=== PATIENT | male | born 1955 | race African-American/Black ===

== ENCOUNTER 2023-01-14 15:43 | Inpatient (IN) ==
--- NOTE | 2023-01-14 16:16 | Emergency Department Note ---
Impression & Plan DKA (diabetic ketoacidosis), Chest pain, Hyperkalemia, Acute dehydration ED Provider Note NAME: LANE [id number] CHRISTINA AGE: 67 SEX: M : 1955 ARRIVES VIA: Ambulance INFORMANT: Patient, ED PROVIDER(S): Josh Back MD CHIEF COMPLAINT: Elevated blood sugar MEDICAL DECISION MAKING: Patient presents due to concern for elevated blood sugar. IV was established and blood work is obtained. Patient was noted to have hyper kalemia and significant elevation in blood sugar in addition to low bicarb and anion gap. Concern for possible DKA. Patient was ordered IV fluid boluses as well as insulin bolus and drip albuterol treatment. Do not believe the patient requires potassium binders at this time as the patient's creatinine is not significantly elevated. Blood work shows a normal white count hemoglobin and platelet count. The patient's kidney function with a creat of 1.7. Sodium 130 which is likely pseudohyponatremia as the patient's blood sugar 643. Potassium was 6.1 with a bicarb of 12 and anion gap of 23. Patient's urinalysis does not show evidence of obvious infection but does show ketones. Patient's chest x-ray does not show any obvious pneumothorax. Critical Care: I have personally spent 55 minutes of critical care time in direct management of this patient. This includes bedside care, interpretation of diagnostic studies, and testing, discussion with consultants, patient, and family members, and other require inpatient management activities. This 55 minutes is in excess of all separately billable procedures. Discussion w/ other healthcare providers: Dr. Kaye with inpatient medicine service [facility] emergency medicine pharmacy Prior /Outside records reviewed: I reviewed the patient's medication list from his boot camp. Differential diagnosis: Infection, dehydration, metabolic abnormality, hypo/hyperglycemia, electrolyte imbalance, anemia, UTI, pneumonia, thyroid dysfunction among others were considered. Diagnostics, as interpreted by me: ECG: Normal sinus rhythm, rate of 86, normal intervals normal axis no ST elevations Cardiac monitoring: An order was placed for continuous cardiac monitoring. The monitor shows a rate of 85 with sinus rhythm. Patient was placed on pulse oximetry Medical decision rules: None Imaging studies: I informally interpreted the patient's chest x-ray which does not show obvious pneumothorax with formal report to follow. HPI: Patient presents from a boot camp which she has been in for some time but was noted to have elevated blood sugar. The patient states he has no prior history of diabetes in the past. The patient has noticed some increased thirst and urination. Patient denies any falls or trauma no infectious symptoms. Patient states that he has noted that he is a bit more winded when he is out in the yard. Patient states that he has had some associated chest discomfort approximate 3 weeks worse with exertion but better with rest. Patient denies any alcohol or tobacco use. PAST MEDICAL HISTORY: See Below PAST SURGICAL HISTORY: See Below SOCIAL HISTORY: See Below HOME MEDICATIONS: See Below ALLERGIES: See Below VITALS: See Below PHYSICAL EXAMINATION: GENERAL: NAD, non-toxic. Wearing glasses. EYE EXAM: Normal conjunctiva. PERRL, no anisocoria and EOM's grossly intact w/o pain. OROPHARYNX: Dry mucus membranes, edentulous. NECK: Supple, no nuchal rigidity, no adenopathy, non-tender. No signs of meningismus. FROM of the neck with good chin to chest and neck extension. No stridor. LUNGS: Clear to auscultation. Normal chest wall mechanics. HEART: NSR, no MRG. ABDOMEN: Abdomen soft, non-tender, no masses, no rebound or guarding. BACK: No CVA TTP. SKIN: No rashes and no bruising. UPPER EXTREMITIES: Upper extremities are grossly normal. LOWER EXTREMITIES: Grossly normal, no edema. NEURO EXAM: A&O x3, cranial nerves II-XII grossly intact, normal speech, moves all 4 extremities. 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 Beliefs That Will Affect Care: None Current Living Situation: Other Feels Safe at Home: Yes Assistive Devices: None Allergies Allergies Allergy/AdvReac Type Severity Reaction Status Date / Time Penicillins Allergy Unknown Verified 01/14/23 17:57 Home Meds Home Medications Medication Instructions Recorded Confirmed calcium carbonate 600 mg-vitamin 1 tab PO BID 01/14/23 01/14/23 D3 10 mcg (400 unit) tablet (Calcium 600 + D(3)) ketoconazole 2 % topical cream 1 applic topical HS 01/14/23 01/14/23 Previous Rx's Medication Instructions Recorded aspirin 81 mg tablet,delayed 81 mg PO QAM 30 days #30 tabs 01/16/23 release atorvastatin 40 mg tablet 80 mg PO QAM 30 days #60 tabs 01/16/23 insulin aspart U-100 100 unit/mL 1 unit (0.01 mL) SC ACHS #10 mL 01/16/23 subcutaneous solution (Novolog U-100 Insulin aspart) insulin glargine 100 unit/mL 30 unit (0.3 mL) SC HS #10 mL 01/16/23 subcutaneous solution (Lantus U-100 Insulin) metoprolol tartrate 25 mg tablet 12.5 mg PO BID 30 days #30 tabs 01/16/23 Results & Data (ED) Vital Signs Vital Signs - 24 hr 01/14/23 15:58 01/14/23 15:27 01/14/23 15:51 Temperature 36.8 C Temperature Source Oral Pulse Rate 84 89 Pulse Rate [Apical] Pulse Rate from SpO2 Sensor Respiratory Rate 14 Blood Pressure 163/108 H Blood Pressure [Left Arm] Blood Pressure Mean 126 Blood Pressure Mean [Left Arm] Pulse Oximetry 96 Oxygen Delivery Method Room Air Sepsis Recent Fever Within 48 Hours No Sepsis New/Unexplained Change in Mental Status No Sepsis Action Taken by Nursing No Action Required 01/14/23 15:59 01/14/23 16:00 01/14/23 16:10 Temperature Temperature Source Pulse Rate 85 85 86 Pulse Rate [Apical] Pulse Rate from SpO2 Sensor 85 86 86 Respiratory Rate 17 18 17 Blood Pressure Blood Pressure [Left Arm] Blood Pressure Mean Blood Pressure Mean [Left Arm] Pulse Oximetry 96 95 96 Oxygen Delivery Method Sepsis Recent Fever Within 48 Hours Sepsis New/Unexplained Change in Mental Status Sepsis Action Taken by Nursing 01/14/23 16:20 01/14/23 16:30 01/14/23 16:40 Temperature Temperature Source Pulse Rate 89 88 88 Pulse Rate [Apical] Pulse Rate from SpO2 Sensor 89 88 88 Respiratory Rate 15 17 17 Blood Pressure Blood Pressure [Left Arm] Blood Pressure Mean Blood Pressure Mean [Left Arm] Pulse Oximetry 96 97 96 Oxygen Delivery Method Sepsis Recent Fever Within 48 Hours Sepsis New/Unexplained Change in Mental Status Sepsis Action Taken by Nursing 01/14/23 16:50 01/14/23 17:00 01/14/23 17:10 Temperature Temperature Source Pulse Rate 89 88 84 Pulse Rate [Apical] Pulse Rate from SpO2 Sensor 89 89 84 Respiratory Rate 15 16 16 Blood Pressure Blood Pressure [Left Arm] Blood Pressure Mean Blood Pressure Mean [Left Arm] Pulse Oximetry 97 97 97 Oxygen Delivery Method Sepsis Recent Fever Within 48 Hours Sepsis New/Unexplained Change in Mental Status Sepsis Action Taken by Nursing 01/14/23 17:20 01/14/23 17:30 01/14/23 17:40 Temperature Temperature Source Pulse Rate 84 83 83 Pulse Rate [Apical] Pulse Rate from SpO2 Sensor 85 83 83 Respiratory Rate 14 16 17 Blood Pressure Blood Pressure [Left Arm] Blood Pressure Mean Blood Pressure Mean [Left Arm] Pulse Oximetry 97 97 98 Oxygen Delivery Method Sepsis Recent Fever Within 48 Hours Sepsis New/Unexplained Change in Mental Status Sepsis Action Taken by Nursing 01/14/23 17:50 01/14/23 18:05 01/14/23 18:00 Temperature Temperature Source Pulse Rate 84 86 Pulse Rate [Apical] 84 Pulse Rate from SpO2 Sensor 85 86 Respiratory Rate 15 20 13 Blood Pressure Blood Pressure [Left Arm] 130/87 Blood Pressure Mean Blood Pressure Mean [Left Arm] 101 Pulse Oximetry 99 100 99 Oxygen Delivery Method Nebulizer Sepsis Recent Fever Within 48 Hours Sepsis New/Unexplained Change in Mental Status Sepsis Action Taken by Nursing 01/14/23 18:05 01/14/23 18:05 Temperature Temperature Source Pulse Rate 86 Pulse Rate [Apical] Pulse Rate from SpO2 Sensor 85 Respiratory Rate 14 Blood Pressure 130/87 Blood Pressure [Left Arm] Blood Pressure Mean 95 Blood Pressure Mean [Left Arm] Pulse Oximetry 99 Oxygen Delivery Method Sepsis Recent Fever Within 48 Hours Sepsis New/Unexplained Change in Mental Status Sepsis Action Taken by Correction Medications Current Medication List: was personally reviewed by me Laboratory Data Attestation: I reviewed the patient's lab results. 01/14/23 16:08 01/14/23 17:38 Lab Results 01/14/23 01/14/23 01/14/23 Range/Units 05:23 15:49 16:08 WBC 6.87 (4.8-10.8) K/ul RBC 5.65 (4.70-6.10) M/uL Hgb 15.7 (14.0-18.0) g/dl POC Hgb (14.0-18.0) g/dl Hct 47.4 (42.0-52.0) % POC Hct (42-52) % MCV 83.9 (80.0-100.0) fL MCH 27.8 (25.0-34.0) pg MCHC 33.1 (32.0-36.0) g/dL RDW Std Deviation 43.2 (36.4-46.3) fL RDW Coeff of Rocio 14.1 (11.5-14.5) % Plt Count 224 (130-400) K/uL MPV 10.1 (9.4-12.4) fL Immature Gran % (Auto) 0.1 % Neut % (Auto) 71.8 % Lymph % (Auto) 21.3 % Jennings % (Auto) 6.1 % Eos % (Auto) 0.1 % Baso % (Auto) 0.6 % Neut # (Auto) 4.93 (1.40-6.50) K/uL Lymph # (Auto) 1.46 (1.20-3.40) K/uL Jennings # (Auto) 0.42 (0.11-0.59) K/uL Eos # (Auto) 0.01 (0.00-0.50) K/uL Baso # (Auto) 0.04 (0.00-0.20) K/uL Immature Gran # (Auto) 0.01 (0.01-0.20) K/uL VBG pH (7.36-7.41) POC Sodium (135-144) mmol/L Sodium (136-145) mmol/L POC Potassium (3.3-5.0) mmol/L Potassium (3.5-5.1) mmol/L POC Chloride (101-112) mmol/L Chloride (98-107) mmol/L Carbon Dioxide (21-32) mmol/L POC Total CO2 (24-31) mmol/L Anion Gap (3-11) POC Anion Gap (16-25) mmol/L POC BUN (7-18) mg/dl BUN (6-23) mg/dl Creatinine (0.6-1.4) mg/dl POC Creatinine (0.6-1.3) mg/dl Est Cr Clr Drug Dosing Est GFR ( Amer) ml/min Est GFR (Non-Af Amer) ml/min BUN/Creatinine Ratio (10-20) Glucose (70-99(Fasting)) mg/dl POC Glucose 581 H* (70-99) mg/dl POC Glucose (other) (70-99) mg/dl Estimat Average Glucose mg/dl Hemoglobin A1c (4.5-5.6) % Calcium (8.6-10.3) mg/dl POC Ioniz Calcium Josi (1.12-1.32) mmol/l Phosphorus (2.5-4.9) mg/dl Magnesium (1.7-2.4) mg/dl Total Bilirubin (0.2-1.0) mg/dl AST (13-39) U/L ALT (7-52) U/L Alkaline Phosphatase (34-104) U/L Total Protein (6.0-8.3) gm/dl Albumin (3.4-5.0) gm/dl Globulin (2.5-4.0) gm/dl Albumin/Globulin Ratio (0.9-2) TSH (0.300-4.500) uIu/ml Urine Color Urine Appearance (Clear) Urine pH (4.5-7.5) Ur Specific [place] (1.000-1.030) Urine Protein (Negative) Urine Glucose (UA) (Negative) Urine Ketones (Negative) Urine Blood (Negative) Urine Nitrite (Negative) Urine Bilirubin (Negative) Urine Urobilinogen (Negative) Ur Leukocyte Esterase (Negative) Urine WBC (Auto) (0-5) /hpf Urine RBC (Auto) (0-4) /hpf U Hyaline Cast (Auto) (0-5) /lpf U Epithel Cells (Auto) (0-5) /lpf Urine Bacteria (Auto) (Negative) Anaplasma Smear Cancelled Lyme Disease IgG Ab (Negative) Lyme Disease IgM Ab (Negative) 01/14/23 01/14/23 01/14/23 Range/Units 16:08 16:08 16:08 WBC (4.8-10.8) K/ul RBC (4.70-6.10) M/uL Hgb (14.0-18.0) g/dl POC Hgb (14.0-18.0) g/dl Hct (42.0-52.0) % POC Hct (42-52) % MCV (80.0-100.0) fL MCH (25.0-34.0) pg MCHC (32.0-36.0) g/dL RDW Std Deviation (36.4-46.3) fL RDW Coeff of Rocio (11.5-14.5) % Plt Count (130-400) K/uL MPV (9.4-12.4) fL Immature Gran % (Auto) % Neut % (Auto) % Lymph % (Auto) % Jennings % (Auto) % Eos % (Auto) % Baso % (Auto) % Neut # (Auto) (1.40-6.50) K/uL Lymph # (Auto) (1.20-3.40) K/uL Jennings # (Auto) (0.11-0.59) K/uL Eos # (Auto) (0.00-0.50) K/uL Baso # (Auto) (0.00-0.20) K/uL Immature Gran # (Auto) (0.01-0.20) K/uL VBG pH (7.36-7.41) POC Sodium (135-144) mmol/L Sodium 130 L (136-145) mmol/L POC Potassium (3.3-5.0) mmol/L Potassium 6.1 H* (3.5-5.1) mmol/L POC Chloride (101-112) mmol/L Chloride 95 L (98-107) mmol/L Carbon Dioxide 12 L (21-32) mmol/L POC Total CO2 (24-31) mmol/L Anion Gap 23 H (3-11) POC Anion Gap (16-25) mmol/L POC BUN (7-18) mg/dl BUN 42 H (6-23) mg/dl Creatinine 1.72 H (0.6-1.4) mg/dl POC Creatinine (0.6-1.3) mg/dl Est Cr Clr Drug Dosing Not Reportable Est GFR ( Amer) 46.0 ml/min Est GFR (Non-Af Amer) 39.7 ml/min BUN/Creatinine Ratio 24.4 H (10-20) Glucose 643 H* (70-99(Fasting)) mg/dl POC Glucose (70-99) mg/dl POC Glucose (other) (70-99) mg/dl Estimat Average Glucose 278 mg/dl Hemoglobin A1c 11.3 H (4.5-5.6) % Calcium 11.4 H (8.6-10.3) mg/dl POC Ioniz Calcium Josi (1.12-1.32) mmol/l Phosphorus (2.5-4.9) mg/dl Magnesium (1.7-2.4) mg/dl Total Bilirubin 0.7 (0.2-1.0) mg/dl AST 19 (13-39) U/L ALT 11 (7-52) U/L Alkaline Phosphatase 154 H (34-104) U/L Total Protein 9.7 H (6.0-8.3) gm/dl Albumin 5.5 H (3.4-5.0) gm/dl Globulin 4.2 H (2.5-4.0) gm/dl Albumin/Globulin Ratio 1.3 (0.9-2) TSH 1.321 (0.300-4.500) uIu/ml Urine Color Urine Appearance (Clear) Urine pH (4.5-7.5) Ur Specific [place] (1.000-1.030) Urine Protein (Negative) Urine Glucose (UA) (Negative) Urine Ketones (Negative) Urine Blood (Negative) Urine Nitrite (Negative) Urine Bilirubin (Negative) Urine Urobilinogen (Negative) Ur Leukocyte Esterase (Negative) Urine WBC (Auto) (0-5) /hpf Urine RBC (Auto) (0-4) /hpf U Hyaline Cast (Auto) (0-5) /lpf U Epithel Cells (Auto) (0-5) /lpf Urine Bacteria (Auto) (Negative) Anaplasma Smear Lyme Disease IgG Ab Negative (Negative) Lyme Disease IgM Ab Negative (Negative) 01/14/23 01/14/23 01/14/23 Range/Units 16:14 17:10 17:38 WBC (4.8-10.8) K/ul RBC (4.70-6.10) M/uL Hgb (14.0-18.0) g/dl POC Hgb 17.3 (14.0-18.0) g/dl Hct (42.0-52.0) % POC Hct 51 (42-52) % MCV (80.0-100.0) fL MCH (25.0-34.0) pg MCHC (32.0-36.0) g/dL RDW Std Deviation (36.4-46.3) fL RDW Coeff of Rocio (11.5-14.5) % Plt Count (130-400) K/uL MPV (9.4-12.4) fL Immature Gran % (Auto) % Neut % (Auto) % Lymph % (Auto) % Jennings % (Auto) % Eos % (Auto) % Baso % (Auto) % Neut # (Auto) (1.40-6.50) K/uL Lymph # (Auto) (1.20-3.40) K/uL Jennings # (Auto) (0.11-0.59) K/uL Eos # (Auto) (0.00-0.50) K/uL Baso # (Auto) (0.00-0.20) K/uL Immature Gran # (Auto) (0.01-0.20) K/uL VBG pH (7.36-7.41) POC Sodium 132 L (135-144) mmol/L Sodium 132 L (136-145) mmol/L POC Potassium 6.2 H* (3.3-5.0) mmol/L Potassium 5.2 H (3.5-5.1) mmol/L POC Chloride 104 (101-112) mmol/L Chloride 98 (98-107) mmol/L Carbon Dioxide 13 L (21-32) mmol/L POC Total CO2 14 L (24-31) mmol/L Anion Gap 21 H (3-11) POC Anion Gap 21.0 (16-25) mmol/L POC BUN 43 H (7-18) mg/dl BUN 42 H (6-23) mg/dl Creatinine 1.71 H (0.6-1.4) mg/dl POC Creatinine 1.5 H (0.6-1.3) mg/dl Est Cr Clr Drug Dosing Not Reportable Est GFR ( Amer) 46.3 ml/min Est GFR (Non-Af Amer) 40.0 ml/min BUN/Creatinine Ratio 24.6 H (10-20) Glucose 565 H* (70-99(Fasting)) mg/dl POC Glucose (70-99) mg/dl POC Glucose (other) 664 H* (70-99) mg/dl Estimat Average Glucose mg/dl Hemoglobin A1c (4.5-5.6) % Calcium 10.0 (8.6-10.3) mg/dl POC Ioniz Calcium Josi 1.30 (1.12-1.32) mmol/l Phosphorus 4.4 (2.5-4.9) mg/dl Magnesium 2.6 H (1.7-2.4) mg/dl Total Bilirubin (0.2-1.0) mg/dl AST (13-39) U/L ALT (7-52) U/L Alkaline Phosphatase (34-104) U/L Total Protein (6.0-8.3) gm/dl Albumin (3.4-5.0) gm/dl Globulin (2.5-4.0) gm/dl Albumin/Globulin Ratio (0.9-2) TSH (0.300-4.500) uIu/ml Urine Color Yellow Urine Appearance Clear (Clear) Urine pH 5.0 (4.5-7.5) Ur Specific [place] 1.033 H (1.000-1.030) Urine Protein 1+ H (Negative) Urine Glucose (UA) 3+ H (Negative) Urine Ketones 3+ H (Negative) Urine Blood 1+ H (Negative) Urine Nitrite Negative (Negative) Urine Bilirubin Negative (Negative) Urine Urobilinogen Negative (Negative) Ur Leukocyte Esterase Negative (Negative) Urine WBC (Auto) 1-5 (0-5) /hpf Urine RBC (Auto) 0-4 (0-4) /hpf U Hyaline Cast (Auto) 1-5 (0-5) /lpf U Epithel Cells (Auto) 5-10 H (0-5) /lpf Urine Bacteria (Auto) Negative (Negative) Anaplasma Smear Lyme Disease IgG Ab (Negative) Lyme Disease IgM Ab (Negative) 01/14/23 01/14/23 Range/Units 17:38 18:03 WBC (4.8-10.8) K/ul RBC (4.70-6.10) M/uL Hgb (14.0-18.0) g/dl POC Hgb (14.0-18.0) g/dl Hct (42.0-52.0) % POC Hct (42-52) % MCV (80.0-100.0) fL MCH (25.0-34.0) pg MCHC (32.0-36.0) g/dL RDW Std Deviation (36.4-46.3) fL RDW Coeff of Rocio (11.5-14.5) % Plt Count (130-400) K/uL MPV (9.4-12.4) fL Immature Gran % (Auto) % Neut % (Auto) % Lymph % (Auto) % Jennings % (Auto) % Eos % (Auto) % Baso % (Auto) % Neut # (Auto) (1.40-6.50) K/uL Lymph # (Auto) (1.20-3.40) K/uL Jennings # (Auto) (0.11-0.59) K/uL Eos # (Auto) (0.00-0.50) K/uL Baso # (Auto) (0.00-0.20) K/uL Immature Gran # (Auto) (0.01-0.20) K/uL VBG pH 7.22 L (7.36-7.41) POC Sodium (135-144) mmol/L Sodium (136-145) mmol/L POC Potassium (3.3-5.0) mmol/L Potassium (3.5-5.1) mmol/L POC Chloride (101-112) mmol/L Chloride (98-107) mmol/L Carbon Dioxide (21-32) mmol/L POC Total CO2 (24-31) mmol/L Anion Gap (3-11) POC Anion Gap (16-25) mmol/L POC BUN (7-18) mg/dl BUN (6-23) mg/dl Creatinine (0.6-1.4) mg/dl POC Creatinine (0.6-1.3) mg/dl Est Cr Clr Drug Dosing Est GFR ( Amer) ml/min Est GFR (Non-Af Amer) ml/min BUN/Creatinine Ratio (10-20) Glucose (70-99(Fasting)) mg/dl POC Glucose 496 H* (70-99) mg/dl POC Glucose (other) (70-99) mg/dl Estimat Average Glucose mg/dl Hemoglobin A1c (4.5-5.6) % Calcium (8.6-10.3) mg/dl POC Ioniz Calcium Josi (1.12-1.32) mmol/l Phosphorus (2.5-4.9) mg/dl Magnesium (1.7-2.4) mg/dl Total Bilirubin (0.2-1.0) mg/dl AST (13-39) U/L ALT (7-52) U/L Alkaline Phosphatase (34-104) U/L Total Protein (6.0-8.3) gm/dl Albumin (3.4-5.0) gm/dl Globulin (2.5-4.0) gm/dl Albumin/Globulin Ratio (0.9-2) TSH (0.300-4.500) uIu/ml Urine Color Urine Appearance (Clear) Urine pH (4.5-7.5) Ur Specific [place] (1.000-1.030) Urine Protein (Negative) Urine Glucose (UA) (Negative) Urine Ketones (Negative) Urine Blood (Negative) Urine Nitrite (Negative) Urine Bilirubin (Negative) Urine Urobilinogen (Negative) Ur Leukocyte Esterase (Negative) Urine WBC (Auto) (0-5) /hpf Urine RBC (Auto) (0-4) /hpf U Hyaline Cast (Auto) (0-5) /lpf U Epithel Cells (Auto) (0-5) /lpf Urine Bacteria (Auto) (Negative) Anaplasma Smear Lyme Disease IgG Ab (Negative) Lyme Disease IgM Ab (Negative) Administered Medications Discontinued Medications Acetaminophen (Acetaminophen 325 Mg Tab) 650 mg PO Q4H PRN PRN Reason: Pain or Fever Stop: 02/13/23 21:35 Last Admin: 01/15/23 23:17 Dose: 650 mg Documented By: Admin: 01/15/23 09:31 Dose: 650 mg Documented By: PANCHITO Albuterol (Albuterol 0.083% Nebu Soln 3 Ml Vial) 10 mg NEB NOW STA; Protocol Stop: 01/14/23 17:23 Last Admin: 01/14/23 17:36 Dose: 10 mg Documented By: LOVE Aspirin (Aspirin 81 Mg Ectab) [facility] Stop: 02/13/23 23:29 Last Admin: 01/17/23 09:05 Dose: 81 mg Documented By: Admin: 01/16/23 08:30 Dose: 81 mg Documented By: Admin: 01/15/23 00:35 Dose: 81 mg Documented By: THOR Atorvastatin Calcium (Atorvastatin 40 Mg Tab) 80 mg PO QAM [facility] Stop: 02/14/23 11:29 Last Admin: 01/17/23 09:05 Dose: 80 mg Documented By: Admin: 01/16/23 08:30 Dose: 80 mg Documented By: Admin: 01/15/23 11:59 Dose: 80 mg Documented By: PANCHITO Fentanyl Citrate (Fentanyl Citrate Pf 100 Mcg/2 Ml Vial) Confirm Administered Dose 100 mcg .ROUTE .STK-MED ONE Stop: 01/16/23 13:45 Last Increment: 01/16/23 14:11 Dose: 12.5 mcg Documented By: EVITA Heparin Sodium (Porcine) (Heparin Sod 5,000 Unit/0.5 Ml Vial) 5,000 units SQ Q8 [facility] Stop: 02/13/23 21:59 Last Admin: 01/14/23 23:33 Dose: 5,000 units Documented By: THOR Heparin Sodium (Porcine) (Heparin (Porcine) 1000 Unit/Ml 10 Ml ([employer]frame [employer] Mechanic Use Only)) Confirm Administered Dose 10,000 units .ROUTE .STK-MED ONE Stop: 01/16/23 13:45 Last Admin: 01/16/23 14:11 Dose: 5,000 units Documented By: EVITA Heparin Sodium/Sodium Chloride (Heparin In Nss Infusion 1000 Unit/500 Ml (2 U/Ml) Bag) Confirm Administered Dose 3,000 units IV .STK-MED ONE Stop: 01/16/23 13:45 Last Admin: 01/16/23 15:29 Dose: Not Given Documented By: NICOLE Sodium Chloride (Nss) 1,000 mls @ 999 mls/hr IV .Q1H1M ONE Stop: 01/14/23 17:32 Last Infusion: 01/14/23 17:56 Dose: 0 mls/hr Documented By: Admin: 01/14/23 16:55 Dose: 999 mls/hr Documented By: LOVE Sodium Chloride (Nss) 1,000 mls @ 999 mls/hr IV .Q1H1M ONE Stop: 01/14/23 18:22 Last Infusion: 01/14/23 23:43 Dose: 0 mls/hr Documented By: Admin: 01/14/23 18:05 Dose: 999 mls/hr Documented By: ML Parenteral Electrolytes (Plasma-Lyte A Ph 7.4) 1,000 mls @ 150 mls/hr IV .Q6H40M [facility] Stop: 02/13/23 17:29 Last Admin: 01/14/23 18:09 Dose: Not Given Documented By: ML Insulin Human Regular 250 (units/ Sodium Chloride) 250 mls @ 0 mls/hr IV .Q0M [facility]; Protocol Stop: 02/13/23 17:29 Last Titration: 01/15/23 14:06 Dose: 0 units/hr, 0 mls/hr Documented By: PANCHITO Co-signed By: MARÍA Titration: 01/15/23 11:59 Dose: 0 units/hr, 0 mls/hr Documented By: PANCHITO Co-signed By: KEBernie Titration: 01/15/23 10:43 Dose: 4 units/hr, 4 mls/hr Documented By: PANCHITO Co-signed By: MECHELLE Titration: 01/15/23 10:26 Dose: 6.1 units/hr, 6.1 mls/hr Documented By: PANCHITO Co-signed By: RAFS Titration: 01/15/23 08:30 Dose: 7.6 units/hr, 7.6 mls/hr Documented By: DW Co-signed By: LJS Titration: 01/15/23 07:04 Dose: 7.6 units/hr, 7.6 mls/hr Documented By: DW Co-signed By: AMB Titration: 01/15/23 06:46 Dose: 7.6 units/hr, 7.6 mls/hr Documented By: AMB Co-signed By: LJS Titration: 01/15/23 04:17 Dose: 7.6 units/hr, 7.6 mls/hr Documented By: AMB Co-signed By: HFS Titration: 01/14/23 23:52 Dose: 7.6 units/hr, 7.6 mls/hr Documented By: AMB Co-signed By: HFS Titration: 01/14/23 23:22 Dose: 0 units/hr, 0 mls/hr Documented By: AMB Co-signed By: NALLELY(2) Titration: 01/14/23 22:20 Dose: 12.7 units/hr, 12.7 mls/hr Documented By: THOR Co-signed By: SAEED Titration: 01/14/23 20:07 Dose: 12.7 units/hr, 12.7 mls/hr Documented By: LOVE Co-signed By: GRANT Admin: 01/14/23 20:02 Dose: Not Given Documented By: LOVE Co-signed By: GRANT Titration: 01/14/23 19:20 Dose: 10.6 units/hr, 10.6 mls/hr Documented By: LOVE Co-signed By: GRANT Admin: 01/14/23 17:59 Dose: 8.8 units/hr, 8.8 mls/hr Documented By: ML Co-signed By: ORLANDO Calcium Gluconate () 1,000 mg in 60 mls @ 240 mls/hr IV NOW STA Stop: 01/14/23 17:41 Last Infusion: 01/14/23 18:09 Dose: 0 mls/hr Documented By: Admin: 01/14/23 17:35 Dose: 240 mls/hr Documented By: LOVE Sodium Chloride (Nss) 1,000 mls @ 150 mls/hr IV .[id number] BRY Stop: 02/13/23 18:14 Last Infusion: 01/14/23 23:43 Dose: 0 mls/hr Documented By: Admin: 01/14/23 20:02 Dose: 150 mls/hr Documented By: LOVE Dextrose/Lactated Ringer's (D5w And Lactated Ringers) 1,000 mls @ 200 mls/hr IV .Q5H BRY Stop: 02/13/23 22:59 Last Infusion: 01/15/23 09:29 Dose: 0 mls/hr Documented By: Admin: 01/15/23 04:20 Dose: 200 mls/hr Documented By: Infusion: 01/15/23 04:20 Dose: 200 mls/hr Documented By: Admin: 01/14/23 23:33 Dose: 200 mls/hr Documented By: THOR Heparin Sodium/Dextrose (Heparin Sodium/Dextrose) 25,000 units in 500 mls @ 0 mls/hr IV .Q0M BRY; Protocol Stop: 01/16/23 08:00 Last Titration: 01/16/23 08:29 Dose: 0 units/hr, 0 mls/hr Documented By: NICOLE Co-signed By: [id number] Titration: 01/16/23 06:54 Dose: 0 units/hr, 0 mls/hr Documented By: NALLELY Co-signed By: NICOLE Admin: 01/15/23 19:22 Dose: 1,400 units/hr, 28 mls/hr Documented By: AMM Co-signed By: PK Titration: 01/15/23 19:22 Dose: 1,400 units/hr, 28 mls/hr Documented By: AMM Co-signed By: PK Titration: 01/15/23 19:15 Dose: 1,400 units/hr, 28 mls/hr Documented By: AMEnedelia Co-signed By: PANCHITO Titration: 01/15/23 11:59 Dose: 1,400 units/hr, 28 mls/hr Documented By: PANCHITO Co-signed By: MARÍA Titration: 01/15/23 07:04 Dose: 1,400 units/hr, 28 mls/hr Documented By: PANCHITO Co-signed By: THOR Admin: 01/15/23 04:16 Dose: 1,400 units/hr, 28 mls/hr Documented By: THOR Co-signed By: ROSARIO Insulin Aspart (Insulin Aspart Per Unit Charge) 0 units SC ACHS BRY Stop: 02/13/23 20:59 Last Admin: 01/15/23 14:07 Dose: Not Given Documented By: Admin: 01/15/23 09:31 Dose: 11 units Documented By: PANCHITO Co-signed By: RHINA Admin: 01/14/23 21:53 Dose: Not Given Documented By: THOR Co-signed By: HFS Insulin Aspart (Insulin Aspart Per Unit Charge) 0 units SC ACHS BRY Stop: 01/15/23 23:59 Last Admin: 01/15/23 20:30 Dose: 4 units Documented By: NALLELY Co-signed By: PK Admin: 01/15/23 17:43 Dose: 12 units Documented By: PANCHITO Co-signed By: MECHELLE Insulin Aspart (Insulin Aspart Per Unit Charge) 0 units SC QDL BRY Stop: 01/15/23 14:16 Last Admin: 01/15/23 14:06 Dose: 5 units Documented By: PANCHITO Co-signed By: MARÍA Insulin Aspart (Insulin Aspart Per Unit Charge) 0 units SC Q4 BRY Stop: 02/15/23 00:00 Last Admin: 01/16/23 03:45 Dose: 3 units Documented By: NALLELY Co-signed By: SABRA Admin: 01/15/23 23:14 Dose: 3 units Documented By: NALLELY Co-signed By: SABRA Insulin Aspart (Insulin Aspart Per Unit Charge) 0 units SC Q6 BRY Stop: 02/15/23 07:59 Last Admin: 01/16/23 12:30 Dose: 2 units Documented By: NICOLE Co-signed By: [id number] Admin: 01/16/23 08:28 Dose: 4 units Documented By: NICOLE Co-signed By: [id number] Insulin Aspart (Insulin Aspart Per Unit Charge) 0 units SC ACHS BRY Stop: 02/15/23 07:59 Last Admin: 01/17/23 17:51 Dose: 16 units Documented By: RHINA Co-signed By: EMILIE Admin: 01/17/23 14:19 Dose: 6 units Documented By: GPJenna Co-signed By: PORFIRIO Admin: 01/17/23 09:05 Dose: 4 units Documented By: RHINA Co-signed By: EMILIE Admin: 01/16/23 20:29 Dose: 10 units Documented By: INEZ Co-signed By: NALLELY Admin: 01/16/23 18:02 Dose: 6 units Documented By: NICOLE Co-signed By: ESTHER Insulin Glargine (Lantus Per Unit Charge) 50 units SC NOW ONE Stop: 01/15/23 08:31 Last Admin: 01/15/23 08:45 Dose: 50 units Documented By: PANCHITO Co-signed By: MECHELLE Insulin Glargine (Lantus Per Unit Charge) 30 units SC BID BRY Stop: 02/15/23 08:59 Last Admin: 01/16/23 08:52 Dose: Not Given Documented By: NICOLE Insulin Glargine (Lantus Per Unit Charge) 30 units SC HS BRY Stop: 01/16/23 21:01 Last Admin: 01/16/23 20:29 Dose: 30 units Documented By: INEZ Co-signed By: NALLELY Insulin Human Regular (Novolin-R Bolus From Bag) 10 units IV ONE ONE Stop: 01/14/23 17:46 Last Admin: 01/14/23 17:35 Dose: Not Given Documented By: LOVE Insulin Human Regular (Novolin-R Insulin Per Unit Charge) Confirm Administered Dose 1 units .ROUTE .STK-MED ONE Stop: 01/14/23 17:32 Last Admin: 01/14/23 17:35 Dose: 10 units Documented By: LOVE Co-signed By: HARVEY Metoprolol Tartrate (Metoprolol Tartrate 25 Mg Tab) 12.5 mg PO BID BRY Stop: 02/14/23 02:14 Last Admin: 01/17/23 09:06 Dose: 12.5 mg Documented By: GPJenna Admin: 01/16/23 20:28 Dose: 12.5 mg Documented By: Admin: 01/16/23 08:30 Dose: 12.5 mg Documented By: Admin: 01/15/23 20:29 Dose: 12.5 mg Documented By: Admin: 01/15/23 08:58 Dose: 12.5 mg Documented By: Admin: 01/15/23 03:03 Dose: 12.5 mg Documented By: THOR Midazolam HCl (Midazolam Hcl 1 Mg/Ml 2ml Vial) Confirm Administered Dose 2 mg .ROUTE .STK-MED ONE Stop: 01/16/23 13:44 Last Increment: 01/16/23 14:11 Dose: 1 mg Documented By: EVITA Muse (Stat Iv) 1 each N/A NOW STA Stop: 01/14/23 17:23 Last Admin: 01/14/23 19:20 Dose: 1 each Documented By: LOVE Muse (Stat Iv Infusion Titration Per Protocol) 1 each N/A NOW STA Stop: 01/14/23 17:23 Last Admin: 01/14/23 20:02 Dose: Not Given Documented By: LOVE Muse (Dka Goal Range 150-250 Mg/Dl) 1 each N/A ONE ONE Stop: 01/14/23 17:31 Last Admin: 01/14/23 17:35 Dose: Not Given Documented By: LOVE Muse (Heparin Drip - Stop Order) 1 each N/A 0800 ONE Stop: 01/16/23 08:01 Last Admin: 01/16/23 08:29 Dose: 1 each Documented By: NICOLE Nicardipine HCl (Nicardipine Hcl Inj 2.5 Mg/Ml 10 Ml Amp) Confirm Administered Dose 25 mg .ROUTE .STK-MED ONE Stop: 01/16/23 13:45 Last Admin: 01/16/23 15:29 Dose: Not Given Documented By: NICOLE Nitroglycerin/Dextrose (Nitroglycerin/D5w 100mcg/Ml 20ml Syr) Confirm Administered Dose 2,000 mcg .ROUTE .STK-MED ONE Stop: 01/16/23 13:45 Last Admin: 01/16/23 15:29 Dose: Not Given Documented By: NICOLE Potassium Chloride (Potassium Chloride Pwd 20 Meq Pack) 40 meq PO NOW STA Stop: 01/14/23 22:49 Last Admin: 01/14/23 23:32 Dose: 40 meq Documented By: AMB Imaging Data Radiologist's Impression: Chest X-Ray 01/14/23 15:51 XR chest 1V portable CLINICAL HISTORY: weakness TECHNIQUE: Single frontal radiograph of the chest was obtained. Comparison: None available at the time of this dictation. FINDINGS: No lines and tubes are seen. The cardiomediastinal silhouette is normal. The lungs are clear. No evidence of pleural effusion or pneumothorax. IMPRESSION: No acute chest disease. ACT 112: Negative or not required by law. Electronically signed by: Med Macias M.D. 01/14/2023 5:10 PM Discharge Plan Visit Data Chief Complaint: Hyperglycemia Stated Complaint: HYPERGLYCEMIC - NEW ONSET ED Provider: Josh Back Discharge Problem: DKA (diabetic ketoacidosis), Chest pain, Hyperkalemia, Acute dehydration Patient Disposition: Admitted As Inpatient Discharge Instructions Interventions: ED Discharge Assessment Last Done: 01/14/23 21:25
[2023-01-14] MEDS ORDERED: SODIUM CHLORIDE 0.9% 1,000 ML IV ONE ×2 (16:32→17:22)
[2023-01-14 16:44] LABS: Basophils # (auto) 0.04 K/uL (0.00-0.20); Basophils % (auto) 0.6 %; Eosinophils # (auto) 0.01 K/uL (0.00-0.50); Eosinophils % (auto) 0.1 %; Hematocrit (blood only) 47.4 % (42.0-52.0); Hemoglobin 15.7 g/dl (14.0-18.0); Immature Granulocytes # (auto) 0.01 K/uL (0.01-0.20); Immature Granulocytes % (auto) 0.1 %; Lymphocytes # (auto) 1.46 K/uL (1.20-3.40); Lymphocytes % (auto) 21.3 %; Mean Corpuscular Hemoglobin 27.8 pg (25.0-34.0); Mean Corpuscular Hgb Conc 33.1 g/dL (32.0-36.0); Mean Corpuscular Volume 83.9 fL (80.0-100.0); Mean Platelet Volume 10.1 fL (9.4-12.4); Monocytes # (auto) 0.42 K/uL (0.11-0.59); Monocytes % (auto) 6.1 %; Neutrophils # (auto) 4.93 K/uL (1.40-6.50); Neutrophils % (auto) 71.8 %; Platelet Count 224 K/uL (130-400); RDW Coefficient of Variation 14.1 % (11.5-14.5); RDW Standard Deviation 43.2 fL (36.4-46.3); Red Blood Count 5.65 M/uL (4.70-6.10); White Blood Count 6.87 K/ul (4.8-10.8)
[2023-01-14 16:52] LABS: iSTAT Creatinine 1.5 mg/dl (0.6-1.3); iSTAT Hemoglobin 17.3 g/dl (14.0-18.0); iSTAT Ionized Calcium 1.3 mmol/l (1.12-1.32); iSTAT Potassium 6.2 mmol/L (3.3-5.0)
--- NOTE | 2023-01-14 17:11 | XRay Report ---
XR chest 1V portable CLINICAL HISTORY: weakness TECHNIQUE: Single frontal radiograph of the chest was obtained. Comparison: None available at the time of this dictation. FINDINGS: No lines and tubes are seen. The cardiomediastinal silhouette is normal. The lungs are clear. No evid ence of pleural effusion or pneumothorax. IMPRESSION: No acute chest disease. ACT 112: Negative or not required by law. Electronically signed by: Med Macias M.D. 01/14/2023 5:10 PM
[2023-01-14 17:21] LABS: Alanine Aminotransferase 11 U/L (7-52); Albumin Globulin Ratio 1.3 (0.9-2); Albumin Level 5.5 gm/dl (3.4-5.0); Alkaline Phosphatase 154 U/L (34-104); Anion Gap 23 (3-11); Aspartate Aminotransferase 19 U/L (13-39); BUN Creatinine Ratio 24.4 (10-20); Bilirubin,Total 0.7 mg/dl (0.2-1.0); Blood Urea Nitrogen 42 mg/dl (6-23); Calcium 11.4 mg/dl (8.6-10.3); Carbon Dioxide 12 mmol/L (21-32); Chloride 95 mmol/L (98-107); Est GFR (Non-African American) 39.7 ml/min; Globulin 4.2 gm/dl (2.5-4.0); Glucose 643 mg/dl (70-99(Fasting)); Potassium 6.1 mmol/L (3.5-5.1); Sodium 130 mmol/L (136-145); Total Protein 9.7 gm/dl (6.0-8.3)
[2023-01-14] MEDS ORDERED: CALCIUM GLUCONATE 10% 1,000 MG in SODIUM CHLOR 0.9% MINI-B 50 ML IV ONE (17:22)
[2023-01-14] MEDS ORDERED: PHARMACY GLYCEMIC MGMT CONSULT PRN (17:22)
[2023-01-14] MEDS ORDERED: INSULIN HUMAN REGULAR PER UNIT 10 UNITS in SYRINGE 9.9 ML IV STA (17:22)
[2023-01-14] MEDS ORDERED: STAT IV/IM STA (17:22)
[2023-01-14] MEDS ORDERED: ALBUTEROL 0.083% NEBU SOLN 3 ML VIAL NEB STA (17:22)
[2023-01-14] MEDS ORDERED: STAT IV Infusion **Titration per Protocol STA (17:22)
[2023-01-14] MEDS ORDERED: CALCIUM GLUCONATE 1,000 MG/60 ML BAG IV STA (17:27)
[2023-01-14] MEDS ORDERED: PLASMA-LYTE A 1,000 ML IV SCH (17:30)
[2023-01-14] MEDS ORDERED: DKA GOAL RANGE 150-250 mg/dl ONE (17:30)
[2023-01-14] MEDS ORDERED: NovoLIN-R INSULIN PER UNIT CHARGE ONE (17:31)
[2023-01-14 17:36] LABS: Thyroid Stimulating Hormone 1.321 uIu/ml (0.300-4.500)
[2023-01-14 17:37] LABS: Appearance Urine Clear (Clear); Bacteria Urine Automated Negative (Negative); Bilirubin Urine Negative (Negative); Blood Urine 1+ (Negative); Color Urine Yellow; Glucose Urine UA 3+ (Negative); Ketones Urine 3+ (Negative); Leukocyte Esterase Urine Negative (Negative); Nitrite Urine Negative (Negative); Protein Urine 1+ (Negative); RBC Urine Automated 0-4 /hpf (0-4); Specific Gravity Urine 1.033 (1.000-1.030); Urobilinogen Urine Negative (Negative)
[2023-01-14] MEDS ORDERED: NovoLIN-R BOLUS FROM BAG IV ONE (17:45)
--- NOTE | 2023-01-14 17:56 | Electrocardiogram Report ---
Test Reason : Blood Pressure : / mmHG Vent. Rate : 086 BPM Atrial Rate : 086 BPM P-R Int : 178 ms QRS Dur : 090 ms QT Int : 376 ms P-R-T Axes : 059 -07 065 degrees QTc Int : 449 ms Normal sinus rhythm Possible Left atrial enlargement Borderline ECG No previous ECGs available Confirmed by Jonh Briones ([id number]) on 01/14/2023 5:56:14 PM Referred By: Confirmed By:Bakari Briones
[2023-01-14] MEDS: INSULIN REGULAR 250 UNITS in SODIUM CHLORIDE 0.9% 247.5 ML IV SCH ×2 (17:59→20:02)
--- NOTE | 2023-01-14 18:12 | History & Physical Report ---
Date of Service January 14, 2023 Assessment & Plan (1) DKA (diabetic ketoacidosis): Plan: New onset DMII presenting in DKA. Per history above this appears to have been worsening over the past couple of weeks. Hyperkalemia, elevated creatinine, hypercalcemia, reports of polyuria, polydipsia and fatigue are consistent with severe dehydration. Rehydration efforts ongoing in the ER. PlasmaLyte changed to NSS for resuscitation efforts as this does have some potassium in solution and K is 6.2. Cont to trend BMP, pH, Mag, Phos per protocol to close high anion gap and correct his underlying metabolic acidosis. Diabetic nurse educator consult requested, and will need to assess A1C and come up with a regimen that works for him. Avoid Jardiance moving forward with ketosis now in history. (2) DMII (diabetes mellitus, type 2): Plan: Plan as above. Will need annual podiatry and ophthalmologic screenings. (3) Chest pain on exertion: Plan: this description is consistent with stable angina that appears to be accelerating. No evidence of ACS on EKG. Trop HS pending. (4) Hyperkalemia: Plan: As a result of dehydration and hyperglycemia. Corrected with insulin, neb and calcium gluconate given in the ER to stabilize cardiac membrane. (5) Acute renal failure: Plan: a result of dehydration in setting of DKA in addition to possible recent NSAID use (patient was unsure of the name of OTC drugs he has been taking but feels these were equivalent to Ibuprofen). Expect to correct to baseline with fluid resuscitation. Trend BMP. Avoid NSAIDs. (6) Hypercalcemia: Plan: 2/2 dehydration. If this doesn't normalize with rehydration efforts, consider 25 OH, PTH (7) H/O tobacco use, presenting hazards to health: Plan: Quit in June of this year, lifelong smoking history reported. DVT proph-Lovenox. Full code Dispo-PCU I spent a total [id number] coordinating, documenting, and providing care for this patient excluding time spent in the performance of separately billed services Ivanna Kaye DO [facility] Hospitalist History of Present Illness Chief Complaint: DKA, new onset diabetes Primary Care Provider: FATUMA Chahal 67 yo M new onset diabetic man presents in DKA. He reports chest discomfort for the past 3 weeks which is substernal and worse with exertion/better with rest. He reports not "going out to the yard" because of fatigue, feet swelling, and this chest discomfort. He also reports that his feet wee being treated for athlete's foot and that his swelling has improved. He reports chest discomfort when walking to and from the [place], and has been avoiding exercise. He reports that his chest pain feels like "someone is standing on my chest." ROS also reveals polyuria, poor sleep quality and dry mouth. He was trying to eat sour candies to help with this and reports a diet heavy in sugar and candies. He was also recently taking higher amounts of Ibuprofen and Tylenol for joint stiffness and states this wasn't helping much. History of heavy smoking until June this year, since he was 16 yrs old. Also reports a history of heavy drinking since he was 16 yrs old and quit drinking about 1 year ago. Allergies Allergy/AdvReac Type Severity Reaction Status Date / Time Penicillins Allergy Unknown Verified 01/14/23 17:57 Home Medications Medication Instructions Recorded Confirmed Type calcium carbonate 600 mg-vitamin 1 tab PO BID 01/14/23 01/14/23 History D3 10 mcg (400 unit) tablet (Calcium 600 + D(3)) ketoconazole 2 % topical cream 1 applic topical HS 01/14/23 01/14/23 History Past Med/Surg History Medical History Arthritis DMII (diabetes mellitus, type 2) H/O alcohol dependence H/O tobacco use, presenting hazards to health Surgical History No pertinent past surgical history Social History (Updated 01/14/23 @ 18:37 by Ivanna Kaye DO) Smoking Status: Former smoker Tobacco Type: Cigarettes Age Started Using Tobacco: 16; Smoking End Date: 06/11/22; Hx Alcohol Use: Yes (h/o heavy alcohol use, stopped Nov 2021) Hx Substance Use: No Feels Safe at Home: Yes Physical Exam Physical Exam: CONSTITUTIONAL: WNWD, vitals as above, generally well-appearing, NAD EYES: pupils are round and equal bilaterally, normal conjunctivae, no scleral icterus ENT: external ear and nose normal, oropharynx clear, MMM NECK: trachea midline RESPIRATORY: clear to auscultation bilaterally, no crackles, rales or wheezes, normal respiratory effort CARDIOVASCULAR: regular rate and rhythm, S1 and 2 heard without murmurs, gallops or rubs, no JVD, no peripheral edema CHEST: inspection of chest was normal GASTROINTESTINAL: normal bowel sounds, soft, nontender, ND, no guarding MUSCULOSKELETAL: strength 5/5 throughout, head is normocephalic and atraumatic SKIN: warm and dry NEUROLOGIC: CN 2-12 grossly intact, no sensory deficit, normal cognition, normal speech, no tremor PSYCHIATRIC: alert cooperative and oriented to person, place and time. Euthymic mood, makes good eye contact, language grossly intact, recent and remote memory grossly intact. Results & Data Results & Data Vital Signs (Past 12 Hours) Vital Signs Temp Pulse Pulse Resp BP BP Pulse Ox 01/14/23 18:05 84 20 130/87 100 01/14/23 17:50 84 15 99 01/14/23 17:40 83 17 98 01/14/23 17:30 83 16 97 01/14/23 17:20 84 14 97 01/14/23 17:10 84 16 97 01/14/23 17:00 88 16 97 01/14/23 16:50 89 15 97 01/14/23 16:40 88 17 96 01/14/23 16:30 88 17 97 01/14/23 16:20 89 15 96 01/14/23 16:10 86 17 96 01/14/23 16:00 85 18 95 01/14/23 15:59 85 17 96 01/14/23 15:51 01/14/23 15:27 36.8 C 89 14 163/108 H 96 01/14/23 15:58 84 O2 Del Method 01/14/23 18:05 Nebulizer 01/14/23 17:50 01/14/23 17:40 01/14/23 17:30 01/14/23 17:20 01/14/23 17:10 01/14/23 17:00 01/14/23 16:50 01/14/23 16:40 01/14/23 16:30 01/14/23 16:20 01/14/23 16:10 01/14/23 16:00 01/14/23 15:59 01/14/23 15:51 Room Air 01/14/23 15:27 01/14/23 15:58 Laboratory Results Short CBC 01/14/23 Range/Units 16:08 WBC 6.87 (4.8-10.8) K/ul Hgb 15.7 (14.0-18.0) g/dl Hct 47.4 (42.0-52.0) % Plt Count 224 (130-400) K/uL BMP 01/14/23 01/14/23 16:08 17:38 Sodium 130 L 132 L Potassium 6.1 H* 5.2 H Chloride 95 L 98 Carbon Dioxide 12 L 13 L BUN 42 H 42 H Creatinine 1.72 H 1.71 H Glucose 643 H* 565 H* Calcium 11.4 H 10.0 Liver Function 01/14/23 Range/Units 16:08 Total Bilirubin 0.7 (0.2-1.0) mg/dl AST 19 (13-39) U/L ALT 11 (7-52) U/L Alkaline Phosphatase 154 H (34-104) U/L Albumin 5.5 H (3.4-5.0) gm/dl Urine 01/14/23 Range/Units 17:10 Urine Color Yellow Urine Appearance Clear (Clear) Urine pH 5.0 (4.5-7.5) Ur Specific [place] 1.033 H (1.000-1.030) Urine Protein 1+ H (Negative) Urine Glucose (UA) 3+ H (Negative) Diagnostic Findings Chest X-Ray 01/14/23 15:51 XR chest 1V portable CLINICAL HISTORY: weakness TECHNIQUE: Single frontal radiograph of the chest was obtained. Comparison: None available at the time of this dictation. FINDINGS: No lines and tubes are seen. The cardiomediastinal silhouette is normal. The lungs are clear. No evidence of pleural effusion or pneumothorax. IMPRESSION: No acute chest disease. ACT 112: Negative or not required by law. Electronically signed by: Med Macias M.D. 01/14/2023 5:10 PM Medications Administered Current Inpatient Medications Dextrose (Dextrose 50% 50 Ml Syringe) 25 - 50 ml IV UD PRN; Protocol PRN Reason: Hypoglycemia Protocol Stop: 02/13/23 19:44 Glucagon (Glucagon For Inj 1 Mg Vial) 1 mg IM UD PRN; Protocol PRN Reason: Hypoglycemia Protocol Stop: 02/13/23 19:44 Glucose (Glucose 40% Gel 15 Gm Tube) 15 - 30 gm PO UD PRN; Protocol PRN Reason: Hypoglycemia Protocol Stop: 02/13/23 19:44 Glucose (Glucose 10 Tab/Tube) 4 - 8 tab PO UD PRN; Protocol PRN Reason: Hypoglycemia Protocol Stop: 02/13/23 19:44 Insulin Human Regular 250 (units/ Sodium Chloride) 250 mls @ 10.6 mls/hr IV .[id number] [facility]; Protocol Stop: 02/13/23 17:29 Last Titration: 01/14/23 19:20 Dose: 10.6 units/hr, 10.6 mls/hr Sodium Chloride (Nss) 1,000 mls @ 150 mls/hr IV .[id number] [facility] Stop: 02/13/23 18:14 Insulin Aspart (Insulin Aspart Per Unit Charge) 0 units SC ACHS [facility] Stop: 02/13/23 20:59 Miscellaneous (Carbohydrates For Hypoglycemia ) 15 - 30 gm PO UD PRN PRN Reason: Hypoglycemia Treatment Stop: 02/13/23 19:44 Miscellaneous Information (Pharmacy Glycemic Mgmt Consult) 1 each N/A UD PRN PRN Reason: Consult Stop: 02/13/23 17:21 Code Status & VTE Plan VTE Prophylaxis Plan VTE Prophylaxis will be ordered: Yes
[2023-01-14 18:15] LABS: Anion Gap 21 (3-11); BUN Creatinine Ratio 24.6 (10-20); Blood Urea Nitrogen 42 mg/dl (6-23); Carbon Dioxide 13 mmol/L (21-32); Chloride 98 mmol/L (98-107); Est GFR (African American) 46.3 ml/min; Glucose 565 mg/dl (70-99(Fasting)); Magnesium 2.6 mg/dl (1.7-2.4); Phosphorus 4.4 mg/dl (2.5-4.9); Potassium 5.2 mmol/L (3.5-5.1); Sodium 132 mmol/L (136-145)
[2023-01-14] MEDS ORDERED: SODIUM CHLORIDE 0.9% 1,000 ML IV SCH (18:15)
[2023-01-14 18:47] LABS: Estimated Average Glucose 278 mg/dl; Hemoglobin A1C 11.3 % (4.5-5.6)
[2023-01-14] MEDS ORDERED: GLUCAGON FOR INJ 1 MG VIAL IM PRN (19:45)
[2023-01-14] MEDS ORDERED: GLUCOSE 40% GEL 15 GM TUBE PO PRN (19:45)
[2023-01-14] MEDS ORDERED: DEXTROSE 50% 50 ML SYRINGE IV PRN (19:45)
[2023-01-14] MEDS ORDERED: CARBOHYDRATES FOR HYPOGLYCEMIA PO PRN (19:45)
[2023-01-14] MEDS ORDERED: GLUCOSE 10 TAB/TUBE PO PRN (19:45)
[2023-01-14] MEDS: INSULIN ASPART PER UNIT CHARGE SC SCH (21:53)
[2023-01-14] MEDS ORDERED: HEPARIN SOD 5,000 UNIT/0.5 ML VIAL SQ SCH (22:00)
[2023-01-14 22:44] LABS: BUN Creatinine Ratio 26.1 (10-20); Creatinine Clr Calc Pharmacy 55.5 ml/min; Est GFR (Non-African American) 51.8 ml/min; Magnesium 2.2 mg/dl (1.7-2.4); Phosphorus 2.8 mg/dl (2.5-4.9); Potassium 3.7 mmol/L (3.5-5.1)
[2023-01-14] MEDS ORDERED: POTASSIUM CHLORIDE PWD 20 MEQ PACK PO STA (22:48)
[2023-01-14 22:53] LABS: Troponin I High Sensitivity 218.8 pg/ml (0-20)
[2023-01-14] MEDS: D5W AND LACTATED RINGERS 1,000 ML IV SCH (23:33)
--- NOTE | 2023-01-15 00:11 | Communication Note ---
Date of Service: January 15, 2023 Troponin noted to be increasing. 294 from 218 Patient currently asymptomatic. AP NSTEMI Patient admitted with angina symptoms from a few days ago as per H&P. Aspirin for CAD prevention Initiate low-dose beta-nir given borderline BP IV heparin TTE RE NSTEMI N.p.o. until patient seen by Cardiology in anticipation of ischemic work-up.
[2023-01-15] MEDS: ASPIRIN 81 MG ECTAB PO SCH (00:35)
[2023-01-15 02:05] LABS: BUN Creatinine Ratio 30.6 (10-20); Calcium 9.3 mg/dl (8.6-10.3); Creatinine Clr Calc Pharmacy 70.9 ml/min; Est GFR (African American) 80.7 ml/min; Est GFR (Non-African American) 69.7 ml/min; Phosphorus 2.2 mg/dl (2.5-4.9); Potassium 4.2 mmol/L (3.5-5.1)
[2023-01-15 02:13] LABS: Troponin I High Sensitivity 294.2 pg/ml (0-20)
[2023-01-15] MEDS ORDERED: Heparin IV Adult Wt-Based Standard *NO* Bolus Protocol IV SCH (02:14)
[2023-01-15 02:18] LABS: Partial Thromboplastin Ratio 0.9; Partial Thromboplastin Time 25.6 Seconds (21.0-31.0)
[2023-01-15] MEDS: METOPROLOL TARTRATE 25 MG TAB PO SCH ×3 (03:03→20:29)
[2023-01-15 04:12] LABS: Prothrombin Time 11.4 Seconds (9.0-12.0)
[2023-01-15] MEDS: HEPARIN SODIUM/DEXTROSE 25,000 UNITS/500 ML BAG IV SCH ×2 (04:16→19:22)
[2023-01-15] MEDS: D5W AND LACTATED RINGERS 1,000 ML IV SCH (04:20)
[2023-01-15 06:42] LABS: BUN Creatinine Ratio 28.7 (10-20); Chol HDL Ratio 8.8 (0-5); Creatinine Clr Calc Pharmacy 75.8 ml/min; Est GFR (African American) 87.6 ml/min; Est GFR (Non-African American) 75.5 ml/min; Magnesium 1.9 mg/dl (1.7-2.4); Potassium 3.6 mmol/L (3.5-5.1)
[2023-01-15 06:49] LABS: Troponin I High Sensitivity 268.1 pg/ml (0-20)
[2023-01-15 07:36] LABS: Hematocrit (blood only) 37.6 % (42.0-52.0); Hemoglobin 12.8 g/dl (14.0-18.0); Mean Corpuscular Hemoglobin 27.8 pg (25.0-34.0); Mean Corpuscular Volume 81.6 fL (80.0-100.0); Platelet Count 184 K/uL (130-400); RDW Coefficient of Variation 14.1 % (11.5-14.5); Red Blood Count 4.61 M/uL (4.70-6.10); White Blood Count 4.32 K/ul (4.8-10.8)
[2023-01-15] MEDS ORDERED: LANTUS PER UNIT CHARGE SC ONE (08:30)
[2023-01-15] MEDS ORDERED: INFLUENZA VACCINE HIGH-DOSE (HD-IIV4) PF 65+ 0.7mL SYR IM ONE (09:00)
[2023-01-15] MEDS: INSULIN ASPART PER UNIT CHARGE SC SCH ×5 (09:31→23:14)
[2023-01-15] MEDS: ACETAMINOPHEN 325 MG TAB PO PRN ×2 (09:31→23:17)
--- NOTE | 2023-01-15 10:11 | Cardiology Consultation ---
Date of Consultation January 15, 2023 Assessment & Plan (1) New onset type 2 diabetes mellitus: (2) DKA (diabetic ketoacidosis): (3) Chest pain on exertion: (4) Dyslipidemia, goal LDL below 70: (5) Elevated troponin: (6) NSTEMI (non-ST elevated myocardial infarction): Plan Aspirin 81 mg/day High intensity statin therapy, atorvastatin 80 mg/day Low dose beta-nir therapy as BP allows IV heparin Refer for resting echocardiography NPO after midnight Screen for Lyme and anaplasmosis given arthralgias, [facility] residency. Supervising Physician Co-Signing Physician Notes 67-year-old male admitted with new onset diabetes and DKA. Reports stable exertional angina, class II-III. Lipids markedly uncontrolled. Denies any resting chest discomfort. Discomfort consistent Issa relieved with rest. + Associated shortness of breath. No orthopnea, PND, or lower extremity edema. PE: VSS. Gen: NAD, AAO x3. Heart: Regular rhythm, normal S1-S2. No murmur. Lungs: Clear bilateral, no rales, rhonchi, wheeze. Extremities: No edema. Palpable radial pulse. A/P: Agree with above PA-C history, physical exam, assessment and plan. Add high intensity statin therapy, low-dose aspirin, and beta-nir. Hold IV heparin in a.m. in anticipation of left heart catheterization with coronary angiography. Risk, benefits, alternatives to procedure discussed at length. Patient agreeable. We will proceed in a.m. pending review metabolic panel. History of Present Illness Reason for Consultation: "Worsening angina symptoms x3 weeks, + DMII, history of smoking" Requesting Physician: Vargas Attending Physician: Keyshawn History of Present Illness Mr. Crow Eubanks is a 67-year-old male who was admitted to [facility] on January 14, 2023 with new onset type 2 diabetes mellitus, presenting in DKA, with hyperkalemia, acute on chronic renal dysfunction, severe dehydration. Cardiology consultation requested to due to chest pain Patient describes exertional chest pain/tightness with associated shortness of breath that occurs with activity and resolves with rest. Symptoms began while in [place] in September 2022 and have continued to date. No resting or nocturnal discomfort. Patient denies prior cardiac history. Risk factors include hypertension, marked dyslipidemia, history of tobacco use. LDL cholesterol in January 15, 2023 was 206 mg/dL. EKG on presentation revealed normal sinus rhythm at 86 bpm with possible left atrial enlargement, diffuse ST abnormality. High- sensitivity troponin elevated at 218.8 then 294.2 then 268.1 pg/mL. Resting echocardiography has been obtained by the statistical technician that was pending italian teacher interpretation. Chest x-ray without acute process. Personal review of the patient's continuous monitoring manager reveals sinus rhythm t hroughout with heart rates predominantly in the 80s. Past Medical and Surgical History New onset type 2 diabetes mellitus, presenting in A in January 2023 Hypertension Dyslipidemia Tobacco use, reformed Alcohol use, reformed Arthritis Family History: Mother with throat cancer at the age of 57. Father's history is unknown. One brother without cardiac issues Social History: Reformed smoker having started as a teenager, quitting in June 2022. Patient describes himself as a weekend warrior in regards to alcohol use, typically consuming a 30 pack on the weekends. No illegal drug use. Originally from [facility]. Previously worked in a [employer]. Currently incarcerated at [facility]. Allergies Allergy/AdvReac Type Severity Reaction Status Date / Time Penicillins Allergy Unknown Verified 01/14/23 17:57 Home Medications Medication Instructions Recorded Confirmed Type calcium carbonate 600 mg-vitamin 1 tab PO BID 01/14/23 01/14/23 History D3 10 mcg (400 unit) tablet (Calcium 600 + D(3)) ketoconazole 2 % topical cream 1 applic topical HS 01/14/23 01/14/23 History Patient History Medical History Arthritis DMII (diabetes mellitus, type 2) H/O alcohol dependence H/O tobacco use, presenting hazards to health Surgical History No pertinent past surgical history Social History Smoking Status: Former smoker Tobacco Type: Cigarettes Age Started Using Tobacco: 16; Cigarettes Per Day: 1 ppd; Smoking End Date: 06/11/22; Hx Alcohol Use: No (Not for the last 8 mo) Hx Substance Use: No Preferred Language: Algerian Communication Ability: Effective Transferrer Required: No Beliefs That Will Affect Care: None Current Living Situation: Other Feels Safe at Home: Yes Assistive Devices: None Review of Systems Review of Systems: Complete Review of Systems: Constitutional: Fatigue. No fevers. No rigors. HEENT: No amaurosis fugax. Pulmonary: See above. Cardiac: See above. GI/Abd: No dysphagia Vascular: No history of TIA, CVA, carotid disease, AAA, lower extremity PAD. Hematologic: No coagulation disorder, anemia, or abnormal bleeding. Musculoskeletal: Diffuse joint pain, right hip pain. Skin: No rash. Neurologic: No history of seizure. Endocrine: See above. No thyroid problems. Complete Review of Systems is as stated above, negative, or noncontributory. Physical Exam Physical Exam: General: A&Ox3. NAD. HEENT: Normocephalic. Atraumatic. Eyes: PER. Conjunctiva pink, sclera clear. Neck: No carotid bruits. No JVD. Heart: RRR, 80 bpm. Soft systolic murmur at the LLSB. Lungs: Clear to auscultation. Abdomen: +BS. Soft. Nontender. No masses or organomegaly. Extremities: No clubbing, cyanosis, or edema. Limited neurological examination is without focal deficits. Pulses: radial=2/4, posterior tibial=2/4. Results & Data Vital Signs (Past 12 Hours) Vital Signs Temp Pulse Pulse Resp BP BP Pulse Ox 01/15/23 08:00 36.3 C L 72 18 93/55 L 94 01/15/23 07:19 72 01/15/23 02:52 36.9 C 18 109/82 96 01/15/23 00:00 86 01/14/23 23:14 36.4 C L 84 16 105/70 98 O2 Del Method 01/15/23 08:00 Room Air 01/15/23 07:19 01/15/23 02:52 Room Air 01/15/23 00:00 01/14/23 23:14 Room Air Laboratory Results Cardiac Enzymes 01/14/23 01/14/23 01/14/23 Range/Units 16:08 21:50 21:50 AST 19 (13-39) U/L Troponin I High Sens 218.8 H* Cancelled (0-20) pg/ml 01/15/23 01/15/23 Range/Units 01:20 05:23 AST (13-39) U/L Troponin I High Sens 294.2 H* D 268.1 H* (0-20) pg/ml Coagulation 01/15/23 01/15/23 Range/Units 01:20 01:20 PT 11.4 (9.0-12.0) Seconds APTT 25.6 (21.0-31.0) Seconds Lipids 01/15/23 Range/Units 05:23 Triglycerides 142 (0-150) mg/dl Cholesterol 264 H (0-200) mg/dl HDL Cholesterol 30 mg/dl Cholesterol/HDL Ratio 8.8 H (0-5) CBC 01/14/23 01/15/23 Range/Units 16:08 05:23 WBC 6.87 4.32 L (4.8-10.8) K/ul RBC 5.65 4.61 L (4.70-6.10) M/uL Hgb 15.7 12.8 L D (14.0-18.0) g/dl Hct 47.4 37.6 L (42.0-52.0) % Plt Count 224 184 (130-400) K/uL Neut # (Auto) 4.93 (1.40-6.50) K/uL Lymph # (Auto) 1.46 (1.20-3.40) K/uL [place] # (Auto) 0.42 (0.11-0.59) K/uL Eos # (Auto) 0.01 (0.00-0.50) K/uL Baso # (Auto) 0.04 (0.00-0.20) K/uL Comprehensive Metabolic Panel 01/14/23 01/14/23 01/14/23 Range/Units 16:08 17:38 21:50 Sodium 130 L 132 L 140 (136-145) mmol/L Potassium 6.1 H* 5.2 H 3.7 D (3.5-5.1) mmol/L Chloride 95 L 98 107 (98-107) mmol/L Carbon Dioxide 12 L 13 L 15 L (21-32) mmol/L BUN 42 H 42 H 36 H (6-23) mg/dl Creatinine 1.72 H 1.71 H 1.38 D (0.6-1.4) mg/dl Glucose 643 H* 565 H* 262 H (70-99(Fasting)) mg/dl Calcium 11.4 H 10.0 10.0 (8.6-10.3) mg/dl AST 19 (13-39) U/L ALT 11 (7-52) U/L Alkaline Phosphatase 154 H (34-104) U/L Total Protein 9.7 H (6.0-8.3) gm/dl Albumin 5.5 H (3.4-5.0) gm/dl 01/15/23 01/15/23 Range/Units 01:20 05:23 Sodium 139 139 (136-145) mmol/L Potassium 4.2 3.6 (3.5-5.1) mmol/L Chloride 111 H 112 H (98-107) mmol/L Carbon Dioxide 18 L 19 L (21-32) mmol/L BUN 33 H 29 H (6-23) mg/dl Creatinine 1.08 D 1.01 (0.6-1.4) mg/dl Glucose 218 H 213 H (70-99(Fasting)) mg/dl Calcium 9.3 9.0 (8.6-10.3) mg/dl AST (13-39) U/L ALT (7-52) U/L Alkaline Phosphatase (34-104) U/L Total Protein (6.0-8.3) gm/dl Albumin (3.4-5.0) gm/dl Intake and Output 01/14/23 01/15/23 01/15/23 22:59 06:59 14:59 Intake Total 1358.335 / 3933.065 2574.730 / 3933.065 1106.266 / 1106.266 Output Total 1000 / 1800 800 / 1800 Balance 358.335 / 2133.065 1774.730 / 2133.065 1106.266 / 1106.266 Intake: IV 1108.335 / 3683.065 2574.730 / 3683.065 1106.266 / 1106.266 Calcium Gluconate 1,000 mg In 60 / 60 60 ml @ 240 mls/hr IV NOW STA Rx#:[id number] D5w and Lactated Ringers 1,000 956.667 / 374.163 5804 / 1000 ml @ 200 mls/hr IV .Q5H [facility] Rx# :[id number] Heparin Sodium/Dextrose 25,000 78.4 / 78.4 units In 500 ml @ 1,400 UNITS/ HR 28 mls/hr IV .[id number] [facility] Rx #:[id number] Insulin Regular 250 units In 48.335 / 113.898 65.563 / 113.898 27.866 / 27.866 Sodium Chloride 0.9% 247.5 ml @ 7.6 UNITS/HR 7.6 mls/hr IV . Q24H [facility] Rx#:[id number] Sodium Chloride 0.9% 1,000 ml @ 1000 / 2552.5 1552.5 / 2552.5 150 mls/hr IV .Q6H40M [facility] Rx#: [id number] Oral 250 / 250 Output: Urine 800 / 800 Other 1000 / 1000 Other: Weight 78.5 kg 82.2 kg Weight Measurement Method Built in [facility] Built in [facility]
[2023-01-15 11:37] LABS: Partial Thromboplastin Ratio 1.9
[2023-01-15 11:40] LABS: Partial Thromboplastin Time 54.1 Seconds (21.0-31.0)
[2023-01-15] MEDS: ATORVASTATIN 40 MG TAB PO SCH (11:59)
[2023-01-15 12:29] LABS: Lyme Ab IgG w/WB Rflx Negative (Negative)
[2023-01-15 12:30] LABS: Lyme Ab IgM w/WB Rflx Negative (Negative)
[2023-01-15] MEDS ORDERED: INSULIN ASPART PER UNIT CHARGE SC SCH (14:15)
--- NOTE | 2023-01-15 14:40 | Pharmacy Report ---
Pharmacy Glycemic Short Note 2 - Date of Service January 15, 2023 - Glycemic Short BSG Results (Last 24 hours): 01/14/23 01/14/23 01/14/23 15:49 16:08 16:14 Glucose 643 H* POC Glucose 581 H* POC Glucose (other) 664 H* 01/14/23 01/14/23 01/14/23 17:38 18:03 19:07 Glucose 565 H* POC Glucose 496 H* 448 H* POC Glucose (other) 01/14/23 01/14/23 01/14/23 20:00 21:00 21:50 Glucose 262 H POC Glucose 434 H* 366 H* POC Glucose (other) 01/14/23 01/14/23 01/15/23 22:07 23:01 00:29 Glucose POC Glucose 315 H* 200 H 190 H POC Glucose (other) 01/15/23 01/15/23 01/15/23 01:20 01:22 02:30 Glucose 218 H POC Glucose 200 H 192 H POC Glucose (other) 01/15/23 01/15/23 01/15/23 04:15 05:23 06:25 Glucose 213 H POC Glucose 227 H 248 H POC Glucose (other) 01/15/23 01/15/23 01/15/23 08:14 10:24 11:45 Glucose POC Glucose 178 H 121 H 115 H POC Glucose (other) 01/15/23 13:26 Glucose POC Glucose 102 H POC Glucose (other) OUTPATIENT ANTIDIABETIC REGIMEN: * none * HbA1c 11.3% 01/14/23 ASSESSMENT: * Crow is a 67 YOM admitted with chest pain and found to be in DKA and newly diagnosed with T2DM. Pharmacy has been consulted to assist with glycemic management. * The patient was started on an insulin drip last evening, labs normalized and was subsequently transitioned to SQ insulin and started on a T2DM diet * BSGs within DKA goal range of 150-250 this AM while on high rate of insulin infusion and dextrose containing fluids * Taking into account previous insulin drip rates, 50 units of Lantus was given this AM * He is currently on a heparin drip for NSTEMI, dextrose fluids discontinued this AM * Novolog parameters initiated for dinner at a weight based stress of 3 as patient has fully transitioned off drip PLAN FOR INPATIENT GLYCEMIC CONTROL: * Hold outpatient oral diabetes medications * Basal insulin * Lantus 50 units x1 this AM, reasses basal insulin in AM * Bolus insulin * NovoLog per scale ACHS or Q4hrs while NPO * Goal Range: Low 110 mg/dL - High 140 mg/dL * Correction Factor: 20 mg/dL/unit * Nutritional / Prandial insulin per carb ratio of 1 unit per 7 grams CHO consumed
--- NOTE | 2023-01-15 18:57 | Hospitalist Progress Note ---
Date of Service January 15, 2023 delayed entry date of service noted above Assessment & Plan (1) DKA (diabetic ketoacidosis): Plan: per admitting service notes with addendum: New onset DMII presenting in DKA. Per history above this appears to have been worsening over the past couple of weeks. Hyperkalemia, elevated creatinine, hypercalcemia, reports of polyuria, polydipsia and fatigue are consistent with severe dehydration. Rehydration efforts ongoing in the ER. PlasmaLyte changed to NSS for resuscitation efforts as this does have some potassium in solution and K is 6.2. Cont to trend BMP, pH, Mag, Phos per protocol to close high anion gap and correct his underlying metabolic acidosis. Diabetic nurse educator consult requested, and will need to assess A1C and come up with a regimen that works for him. Avoid Jardiance moving forward with ketosis now in history. 01/15 DKA resolving Transitioning from insulin drip to subcutaneous insulin Lantus and insulin sliding scale Pharmacy glycemic control consulted (2) DMII (diabetes mellitus, type 2): Plan: Plan as above. Will need annual podiatry and ophthalmologic screenings. (3) Chest pain on exertion: Plan: Possible NSTEMI/type 2 NSTEMI this description is consistent with stable angina that appears to be accelerating. No evidence of ACS on EKG. Cardiology service consulted Started on Lipitor 80 mg, metoprolol 12.5 mg p.o. twice daily Aspirin 81 mg p.o. daily Heparin drip continued Plan for cardiac catheterization in the morning next (4) Hyperkalemia: Plan: As a result of dehydration and hyperglycemia. Corrected with insulin, neb and calcium gluconate given in the ER to stabilize cardiac membrane. Resolved (5) Acute renal failure: Plan: a result of dehydration in setting of DKA in addition to possible recent NSAID use (patient was unsure of the name of OTC drugs he has been taking but feels these were equivalent to Ibuprofen). Expect to correct to baseline with fluid resuscitation. Trend BMP. Avoid NSAIDs. Resolved (6) Hypercalcemia: Plan: 2/2 dehydration. If this doesn't normalize with rehydration efforts, consider 25 OH, PTH Resolved (7) H/O tobacco use, presenting hazards to health: Plan: Quit in June of this year, lifelong smoking history reported. DVT proph-Lovenox. Full code Dispo-PCU Admission and Anticipated Discharge Date Admission Date: January 14, 2023 Subjective Follow-up for DKA, NSTEMI, etc. Seen resting in bed, comfortable, not in distress States he feels fine overall except for feeling weak Chest pain has resolved No shortness of breath, palpitation, dizziness No abdominal pain, nausea vomiting No other new symptoms Review of Systems Review of Systems: all noted and negative except for above Physical Exam Physical Exam: General- oriented x 3, not in distress, speaks in sentences with no effort or accessory muscle use Eyes- anicteric Neck- no JVD Lungs- clear breath sounds bilaterally, no rales/wheezes Heart- normal rate, regular rhythm; no murmurs Abdomen- normal bowel sounds, nondistended, soft, nontender Extremities- no pretibial edema, no calf tenderness Neuro- alert, oriented x 3; no gross focal neurologic deficits Skin- warm & dry Results & Data Results & Data Vital Signs (Past 12 Hours) Vital Signs Temp Pulse Pulse Resp BP Pulse Ox O2 Del Method 01/15/23 16:00 36.4 C L 78 18 106/67 91 Room Air 01/15/23 16:49 75 01/15/23 11:15 36.5 C 71 18 107/62 97 Room Air 01/15/23 08:00 36.3 C L 72 18 93/55 L 94 Room Air 01/15/23 07:19 72 all noted and reviewed including below
[2023-01-16] MEDS: INSULIN ASPART PER UNIT CHARGE SC SCH ×5 (03:45→20:29)
[2023-01-16 06:43] LABS: Partial Thromboplastin Ratio 4.1
[2023-01-16 06:50] LABS: Partial Thromboplastin Time 115.9 Seconds (21.0-31.0)
[2023-01-16] MEDS ORDERED: Nursing to Pharmacy Communication SCH ×3 (07:00→15:45)
[2023-01-16] MEDS: ASPIRIN 81 MG ECTAB PO SCH (08:30)
[2023-01-16] MEDS: METOPROLOL TARTRATE 25 MG TAB PO SCH ×2 (08:30→20:28)
[2023-01-16] MEDS: ATORVASTATIN 40 MG TAB PO SCH (08:30)
[2023-01-16] MEDS ORDERED: LANTUS PER UNIT CHARGE SC SCH ×2 (09:00→21:00)
--- NOTE | 2023-01-16 13:12 | Pre Anesthesia Assessment ---
Date of Service January 16, 2023 Pre Sedation Assessment Vital Signs Temp Pulse Pulse Resp BP BP Pulse Ox 01/16/23 13:02 76 20 104/81 94 01/16/23 07:00 72 01/16/23 11:51 37.1 C 79 17 96/65 L 93 01/16/23 07:41 36.3 C L 82 18 104/70 94 01/16/23 03:37 37.0 C 76 16 105/67 93 01/15/23 23:56 75 01/15/23 22:46 36.4 C L 72 16 107/68 95 01/15/23 19:23 36.3 C L 76 16 111/69 95 01/15/23 16:00 36.4 C L 78 18 106/67 91 01/15/23 16:49 75 O2 Del Method 01/16/23 13:02 Room Air 01/16/23 07:00 01/16/23 11:51 Room Air 01/16/23 07:41 Room Air 01/16/23 03:37 Room Air 01/15/23 23:56 01/15/23 22:46 Room Air 01/15/23 19:23 Room Air 01/15/23 16:00 Room Air 01/15/23 16:49 Cardiovascular + regular rate and + regular rhythm + S1 normal and + S2 normal + femoral pulses present and + radial pulses present; no JVD and no carotid bruit Respiratory + respiratory effort normal; no respiratory distress and no labored breathing + clear to auscultation bilaterally; no crackles, no rales, no rhonchi and no wheezes Pre-Sedation Airway Assessment Smoking Status: Former smoker Short, Thick Neck: No Thyromental Distance: > or= 3.5 Finger Breadths Oral Cavity: + WNL Mallampati Class: I ASA: ASA3 NPO Status Date of Last Intake of Fluids: 01/15/23 Date of Last Intake of Solid Food: 01/15/23 Procedure Planning Contraindications for Sedation: none Current Medications Reviewed: Yes Notes The planned sedation has been discussed with the patient. Informed Consent was obtained. I have identified the patient, determined the appropriateness of sedation and have assessed the patient immediately prior to the procedure. All medicine(s) and interventions are by my order.
[2023-01-16] MEDS ORDERED: MIDAZOLAM HCL 1 MG/ML 2ML VIAL ONE (13:43)
[2023-01-16] MEDS ORDERED: fentaNYL citrate PF 100 MCG/2 ML VIAL ONE (13:44)
[2023-01-16] MEDS ORDERED: NITROGLYCERIN/D5W 100MCG/ML 20ML SYR ONE (13:44)
[2023-01-16] MEDS ORDERED: niCARdipine HCL INJ 2.5 MG/ML 10 ML AMP ONE (13:44)
[2023-01-16] MEDS ORDERED: HEPARIN (PORCINE) 1000 UNIT/ML 10 ML (CATH LAB USE ONLY) ONE (13:44)
[2023-01-16] MEDS ORDERED: INSULIN ASPART PER UNIT CHARGE SC SCH (14:15)
--- NOTE | 2023-01-16 14:19 | Electrocardiogram Report ---
Test Reason : Blood Pressure : / mmHG Vent. Rate : 067 BPM Atrial Rate : 067 BPM P-R Int : 170 ms QRS Dur : 090 ms QT Int : 430 ms P-R-T Axes : 064 -22 061 degrees QTc Int : 454 ms Normal sinus rhythm possible Inferior infarct , age undetermined Abnormal ECG When compared with ECG of 14-JAN-2023 15:52, T wave amplitude has decreased in Inferior leads Nonspecific T wave abnormality now evident in Anterolateral leads Confirmed by John Briones ([id number]) on 01/16/2023 2:18:53 PM Referred By: Tirso BURRIS Confirmed By:Bakari Briones
--- NOTE | 2023-01-16 14:20 | Post Anesthesia Assessment ---
Date of Service January 16, 2023 Post Sedation Assessment Vital Signs Temp Pulse Pulse Resp BP BP Pulse Ox 01/16/23 17:30 65 119/75 94 01/16/23 17:00 77 124/85 97 01/16/23 16:30 65 17 116/77 98 01/16/23 16:00 64 119/80 98 01/16/23 15:45 66 114/80 97 01/16/23 15:30 65 17 118/79 96 01/16/23 15:15 70 150/90 H 98 01/16/23 15:02 70 17 108/75 96 01/16/23 14:41 36.8 C 71 18 118/75 95 01/16/23 14:26 36.7 C 76 18 109/78 96 01/16/23 13:02 76 20 104/81 94 01/16/23 07:00 72 01/16/23 11:51 37.1 C 79 17 96/65 L 93 01/16/23 07:41 36.3 C L 82 18 104/70 94 01/16/23 03:37 37.0 C 76 16 105/67 93 01/15/23 23:56 75 01/15/23 22:46 36.4 C L 72 16 107/68 95 01/15/23 19:23 36.3 C L 76 16 111/69 95 O2 Del Method 01/16/23 17:30 Room Air 01/16/23 17:00 Room Air 01/16/23 16:30 Room Air 01/16/23 16:00 Room Air 01/16/23 15:45 Room Air 01/16/23 15:30 Room Air 01/16/23 15:15 Room Air 01/16/23 15:02 Room Air 01/16/23 14:41 Room Air 01/16/23 14:26 Room Air 01/16/23 13:02 Room Air 01/16/23 07:00 01/16/23 11:51 Room Air 01/16/23 07:41 Room Air 01/16/23 03:37 Room Air 01/15/23 23:56 01/15/23 22:46 Room Air 01/15/23 19:23 Room Air Recovery Score Respiration: Deep Breath/Cough Circulation: +/-20% PreAnes Value Consciousness: Arouseable (by name) Discharge Sedation Level of Care: Phase I Post Sedation Plan On clinical assessment, the patient appears to have tolerated the sedation without complications. Patient is recovering as anticipated. Patient will continue to be monitored by nursing and may be discharged when sedation discharge criteria are met per below protocol. Upon Completions of procedure up to 15 minutes continue every 5 minute vital signs and the P.A.R. score; then discharge to a Phase I or Fast Track to Phase II per the following guidelines: * Discharge Patient to appropriate Phase II area if PAR is 8 or greater or return to pre- procedure baseline. The post - procedure orders will be as directed. * If PAR score is less than 8 or not return to pre-procedure baseline then patient will follow Phase I monitoring till PAR is reached for Phase II. The Phase I may be done in procedure room or may call to secure a Phase I area. * If naloxone or flumazenil are used for reversal, hold in Phase I for continu ed monitoring from when last reversal dose was given for a minimum of 60 minutes or longer pending the nurse and/or physician discretion of patient condition before discharge to Phase II. Please call the Sedation Physician to re-evaluate and complete post-note for discharge to Phase II area. Do NOT discharge from procedure sedation or Phase 1 until post- sedation evaluation note is complete by procedure /sedation MD Sedation Discharge Instructions to be given to the patient at discharge to home.
--- NOTE | 2023-01-16 14:25 | Cardiac Catheterization ---
Cardiac Cath Procedure Full Procedure Date January 16, 2023 Pre-Procedure Diagnosis Pre-Procedure Diagnosis: Non STEMI and Angina AUC Score AUC Score: 7 Post-Procedure Diagnosis Post-Procedure Diagnosis: Severe CAD and Normal Intracardiac Pressures Procedure(s) Performed Procedure(s) Performed: Coronary Angiography and Left Heart Cath [employer] Naldo Ambriz DO Exchange Teller(s) Magan RTMickie Estimated Blood Loss Estimated Blood Loss: 5cc Medication(s) Medication(s): Fentanyl, Heparin, Lidocaine 1%, Nicardipine and Versed Summary of Findings Severe multivessel coronary disease. 99% proximal left circumflex. 90% apical LAD 85% mid RCA Hemodynamics Rest Ao:: 85/58/71 Final Ao: 84/55/68 LV: 90/-04/13 Recommendations Recommendations: Management Recommendatons (Case discussed with interventional cardiology. Recommending transfer to tertiary care for further evaluation) Radiation Exposure (mGy) 764 Contrast (mls) 85 Fluids (cc crystalloids) Fluids (cc crystalloids): 825 Nss Drains Drains: N/A Anesthesia Moderate sedation. Start 1351. End 1412. Sedadtion monitor: Kelvin LEON Procedural Complication(s) None Disposition Preventive Medicine Specialist Holding/Recovery I attest to the content of the Intraoperative Record and any orders documented therein. Any exceptions are noted below. ACC Data: Preventive Medicine Specialist Cardiac Status Clinical evaluation leading to the procedure 67-year-old patient with class III anginal symptoms present to the hospital with DKA. Diagnosed with NSTEMI. CAD Presenation: Non STEMI Anginal Classification: CCS III Heart Failure: No Coronary Anatomy Dominant: Right Left Main (% Stenosis): Normal LAD (% Stenosis): Proximal (Diffuse disease up to 30% stenosis), Mid (Diffuse disease with 50% stenosis.) and Distal (90% apical stenosis) D1 (% Stenosis): Proximal (30%) D2 (% Stenosis): Proximal (small <1mm vessel) D3 (% Stenosis): Mid (small 1mm vessel, 60%) Circumflex (% Stenosis): Proximal (99%) RCA (% Stenosis): Proximal (Diffuse disease, 20%), Mid (85%) and Distal (Diffuse disease, 20%) R PDA (% Stenosis): Proximal (30%) R PL1 (% Stenosis): Proximal (20%, small vessel) Diagnostic Physicians Name: Naldo Ambriz DO Closure Device Percutaneous Entry Location: Radial Closure Device: Radial Band Recommendations: Management Recommendatons (Case discussed with interventional cardiology. Recommending transfer to tertiary care for further evaluation) Intraprocedure Events Significant Disection: No Perforation: No
[2023-01-16] MEDS ORDERED: NITROGLYCERIN SL 0.4 MG/TAB TAB SL PRN (14:39)
--- NOTE | 2023-01-16 14:43 | Pharmacy Report ---
Pharmacy Glycemic Short Note 2 - Date of Service January 16, 2023 - Glycemic Short BSG Results (Last 24 hours): 01/15/23 01/15/23 01/15/23 16:34 19:57 23:07 POC Glucose 197 H 207 H 184 H 01/16/23 01/16/23 01/16/23 03:23 07:52 12:06 POC Glucose 183 H 186 H 166 H OUTPATIENT ANTIDIABETIC REGIMEN: * none * HbA1c 11.3% 01/14/23 ASSESSMENT: 01/16: * Crow received 85 units of insulin yesterday of which 50 wer basal * Fasting BSG this AM elevated, would increase basal however complicated by NPO status for procedure instead decreased basal insulin due to NPO status for most of the day * Heparin drip discontinued this AM before procedure, no additional stressors noted. * BSGs are slightly above goal range, Novolog parameters tightened 01/15: * Crow is a 67 YOM admitted with chest pain and found to be in DKA and newly diagnosed with T2DM. Pharmacy has been consulted to assist with glycemic management. * The patient was started on an insulin drip last evening, labs normalized and was subsequently transitioned to SQ insulin and started on a T2DM diet * BSGs within DKA goal range of 150-250 this AM while on high rate of insulin infusion and dextrose containing fluids * Taking into account previous insulin drip rates, 50 units of Lantus was given this AM * He is currently on a heparin drip for NSTEMI, dextrose fluids discontinued this AM * Novolog parameters initiated for dinner at a weight based stress of 3 as patient has fully transitioned off drip PLAN FOR INPATIENT GLYCEMIC CONTROL: * Hold outpatient oral diabetes medications * Basal insulin * Lantus 30 units x1 at bedtime, reassess basal insulin in AM * Bolus insulin * NovoLog per scale ACHS or Q4hrs while NPO * Goal Range: Low 110 mg/dL - High 140 mg/dL * Correction Factor: 15 mg/dL/unit * Nutritional / Prandial insulin per carb ratio of 1 unit per 5 grams CHO consumed
--- NOTE | 2023-01-16 18:07 | Discharge Summary ---
Discharge Summary Date of Service January 16, 2023 Notes For Next Care Provider Medication Changes From Visit Metoprolol tartrate 12.5 mg p.o. twice daily Lipitor 80 mg p.o. daily Aspirin 81 mg p.o. daily Admission HPI Per Admitting Provider 67 yo M new onset diabetic man presents in DKA. He reports chest discomfort for the past 3 weeks which is substernal and worse with exertion/better with rest. He reports not "going out to the yard" because of fatigue, feet swelling, and this chest discomfort. He also reports that his feet wee being treated for athlete's foot and that his swelling has improved. He reports chest discomfort when walking to and from the [facility], and has been avoiding exercise. He reports that his chest pain feels like "someone is standing on my chest." ROS also reveals polyuria, poor sleep quality and dry mouth. He was trying to eat sour candies to help with this and reports a diet heavy in sugar and candies. He was also recently taking higher amounts of Ibuprofen and Tylenol for joint stiffness and states this wasn't helping much. History of heavy smoking until June this year, since he was 16 yrs old. Also reports a history of heavy drinking since he was 16 yrs old and quit drinking about 1 year ago. Admission Exam Per Admitting Provider CONSTITUTIONAL: WNWD, vitals as above, generally well-appearing, NAD EYES: pupils are round and equal bilaterally, normal conjunctivae, no scleral icterus ENT: external ear and nose normal, oropharynx clear, MMM NECK: trachea midline RESPIRATORY: clear to auscultation bilaterally, no crackles, rales or wheezes, normal respiratory effort CARDIOVASCULAR: regular rate and rhythm, S1 and 2 heard without murmurs, gallops or rubs, no JVD, no peripheral edema CHEST: inspection of chest was normal GASTROINTESTINAL: normal bowel sounds, soft, nontender, ND, no guarding MUSCULOSKELETAL: strength 5/5 throughout, head is normocephalic and atraumatic SKIN: warm and dry NEUROLOGIC: CN 2-12 grossly intact, no sensory deficit, normal cognition, normal speech, no tremor PSYCHIATRIC: alert cooperative and oriented to person, place and time. Euthymic mood, makes good eye contact, language grossly intact, recent and remote memory grossly intact. Principal Dx & Hospital Course #1 = Principal Diagnosis (1) DKA (diabetic ketoacidosis): per admitting service notes with addendum: New onset DMII presenting in DKA. Per history above this appears to have been worsening over the past couple of weeks. Hyperkalemia, elevated creatinine, hypercalcemia, reports of polyuria, polydipsia and fatigue are consistent with severe dehydration. Rehydration efforts ongoing in the ER. PlasmaLyte changed to NSS for resuscitation efforts as this does have some potassium in solution and K is 6.2. Cont to trend BMP, pH, Mag, Phos per protocol to close high anion gap and correct his underlying metabolic acidosis. Diabetic nurse educator consult requested, and will need to assess A1C and come up with a regimen that works for him. Avoid Jardiance moving forward with ketosis now in history. 10 DKA resolved A1c 11 Transitioned from insulin drip to subcutaneous insulin Lantus and insulin sliding scale Pharmacy glycemic control consulted (2) DMII (diabetes mellitus, type 2): Plan as above. Will need annual podiatry and ophthalmologic screenings. (3) Chest pain on exertion: Possible NSTEMI/type 2 NSTEMI Severe coronary artery disease this description is consistent with stable angina that appears to be accelerating. No evidence of ACS on EKG. Cardiology service consulted Started on Lipitor 80 mg, metoprolol 12.5 mg p.o. twice daily Aspirin 81 mg p.o. daily Heparin drip 01/16 Status post cardiac cath showing severe CAD Recommendation for CABG Recommendation to transfer to [facility] [address] Heparin drip discontinued (4) Hyperkalemia: As a result of dehydration and hyperglycemia. Corrected with insulin, neb and calcium gluconate given in the ER to stabilize cardiac membrane. Resolved (5) Acute renal failure: a result of dehydration in setting of DKA in addition to possible recent NSAID use (patient was unsure of the name of OTC drugs he has been taking but feels these were equivalent to Ibuprofen). Expect to correct to baseline with fluid resuscitation. Trend BMP. Avoid NSAIDs. Resolved (6) Hypercalcemia: 2/2 dehydration. If this doesn't normalize with rehydration efforts, consider 25 OH, PTH Resolved (7) H/O tobacco use, presenting hazards to health: Quit in June of this year, lifelong smoking history reported. DVT proph-Lovenox. Full code Dispo-PCU Discharge Exam General- oriented x 3, not in distress, speaks in sentences with no effort or accessory muscle use Eyes- anicteric Neck- no JVD Lungs- clear breath sounds bilaterally Heart- normal rate, regular rhythm; no murmurs Abdomen- normal bowel sounds, nondistended, soft, nontender Extremities- no pretibial edema, no calf tenderness Neuro- alert, oriented x 3; no gross focal neurologic deficits Skin- warm & dry Updated Medication List Medication Instructions Recorded Confirmed Type calcium carbonate 600 mg-vitamin 1 tab PO BID 01/14/23 01/14/23 History D3 10 mcg (400 unit) tablet (Calcium 600 + D(3)) ketoconazole 2 % topical cream 1 applic topical HS 01/14/23 01/14/23 History aspirin 81 mg tablet,delayed 81 mg PO QAM 30 days #30 tabs 01/16/23 Rx release atorvastatin 40 mg tablet 80 mg PO QAM 30 days #60 tabs 01/16/23 Rx insulin aspart U-100 100 unit/mL 1 unit (0.01 mL) SC ACHS #10 mL 01/16/23 Rx subcutaneous solution (Novolog U-100 Insulin aspart) insulin glargine 100 unit/mL 30 unit (0.3 mL) SC HS #10 mL 01/16/23 Rx subcutaneous solution (Lantus U-100 Insulin) metoprolol tartrate 25 mg tablet 12.5 mg PO BID 30 days #30 tabs 01/16/23 Rx Hospital Stay Data Consultations 01/14/23 17:44 ED Decision to Admit Stat 01/14/23 21:26 Consult Cardiology Routine Procedures Performed Operation Date: 01/16/23 11:00 Actual Procedures s Cineradiography w/Routine Exam - Naldo Ambriz DO p Cath, Left with Cors and Vent - Naldo Ambriz DO Diagnostic Imagining Performed 01/16/23 07:11 CL Cath Imgs for PACS use only Routine Pending Results Patient Have Any Pending Studies at Discharge: No Discharge Instructions Given to Patient (Per Discharging Provider) Please refer to accompanying hospital discharge summary. Total Time Total Time Spent Total Time Spent (In Minutes): > 30 minutes
[2023-01-17] MEDS: INSULIN ASPART PER UNIT CHARGE SC SCH ×3 (09:05→17:51)
[2023-01-17] MEDS: ATORVASTATIN 40 MG TAB PO SCH (09:05)
[2023-01-17] MEDS: ASPIRIN 81 MG ECTAB PO SCH (09:05)
[2023-01-17] MEDS: METOPROLOL TARTRATE 25 MG TAB PO SCH (09:06)
[2023-01-17] MEDS ORDERED: LANTUS PER UNIT CHARGE SC SCH (21:00)
== END 2023-01-17 18:10 | disposition short-term general hospital (02) | DRG 637 ==
LOC: ED 15:43 → SUATTDRO 18:07 → 4W 18:07